=== PATIENT | male | born 1995 | race Caucasian/White ===

== ENCOUNTER 2016-09-23 14:24 | Emergency (ER) | END 2016-09-23 14:40 | disposition left against medical advice (07) | LOC: C.EDB 14:28 | DX: R10.9 Unspecified abdominal pain (principal) ==

== ENCOUNTER 2017-07-18 01:42 | Emergency (ER) | payer OTHER ==
[~2017-07-18] VITALS: Ht 162.6 cm; Wt 59.5 kg
[2017-07-18 01:45] VITALS: TEMP 36.4; Ht 162.6 cm; Wt 59.5 kg
--- NOTE | 2017-07-18 01:57 | EMERGENCY ROOM VISIT NOTE ---
History Report prepared by Ree: Meg Ceballos Under the Supervision of: Dr. Talha Wong D.O. First contact with patient: 01:49 Chief Complaint: LACERATION/CUT (SUT/DERMABOND) Stated Complaint: FELL AND HIT HEAD History of Present Illness The patient is a 22 year old male who presents to the Emergency Room with complaints of a laceration occurring shortly prior to arrival. Per his friend, the patient jumped from his bunk bed and hit his forehead. Per his friends, the patient did not lose consciousness. His friends state that the patient has Lyme Disease, but is not currently taking medications for it. His friend states that the patient began drinking at 2100 tonight. Limited HPI secondary to intoxication. Source of History: patient, friend History Limited By: intoxication Onset: shortly prior to arrival Position: head (f) Quality: other (laceration) Associated Symptoms: No LOC Review of Systems Limited ROS secondary to intoxication. Past Medical & Surgical Unable to obtain medical history sheet secondary to intoxication. Family History Unable to obtain medical history sheet secondary to intoxication. Social History Smoking Status: Never Smoker Occupation Status: [employer] student Unable to obtain medical history sheet secondary to intoxication. Current/Historical Medications Unable to Obtain Active Prescriptions or Reported Meds Physical Exam Vital Signs Date Time Temp Pulse Resp B/P (MAP) Pulse Ox O2 Delivery O2 Flow Rate FiO2 07/18/17 04:02 110/63 07/18/17 03:35 81 16 95 07/18/17 03:05 84 14 96 07/18/17 03:00 78 15 97 07/18/17 02:30 72 15 97 07/18/17 02:24 69 16 127/60 95 Room Air 07/18/17 02:24 69 07/18/17 02:23 96 Room Air 07/18/17 01:45 36.4 95 18 115/69 99 Room Air Physical Exam GENERAL: Patient is awake to verbal commands, appears intoxicated EYES: The conjunctivae are clear. The pupils are dilated and minimally reactive to light bilaterally. HEAD: Linear laceration above right eyebrow. No active bleeding noted. EARS, NOSE, MOUTH AND THROAT: The nose is without any evidence of any deformity. Mucous membranes are moist tongue is midline NECK: The neck is nontender and supple. RESPIRATORY: Normal respiratory effort is noted there is no evidence of wheezing rhonchi or rales CARDIOVASCULAR: Regular rate and rhythm noted there no murmurs rubs or gallops normal S1 normal S2 GASTROINTESTINAL: The abdomen is soft. Bowel sounds are present in all quadrants. Abdomen is nontender MUSCULOSKELETAL/EXTREMITIES: There is no evidence of gross deformity full range of motion is noted in the hips and shoulders SKIN: There is no obvious evidence of any rash. There are no petechiae, pallor or cyanosis noted. NEUROLOGIC: Patient is awake alert and oriented to person, place, and situation. Patellar reflexes were 2+ bilaterally Medical Decision & Procedures ER Provider Diagnostic Interpretation: Preliminary Findings Only See Final Report For Complete Findings CT C SPINE: No evidence of acute or fracture or malalignment. No critical central canal stenosis or apical pneumothorax. Radiologist: Johny Munoz M.D. Study ready at 02:25 and initial results transmitted at 03:01 Preliminary Findings Only See Final Report For Complete Findings CT HEAD: No ICH, mass effect or edema. No skull fracture. Right frontal scalp hematoma. Radiologist: Johny Munoz M.D. Study ready at 02:25 and initial results transmitted at 02:56 Laboratory Results 07/18/17 02:01 Test 07/18/17 02:01 Anion Gap 10.0 mmol/L (3-11) Est Creatinine Clear Calc Drug Dose 107.6 ml/min Estimated GFR () 139.1 Estimated GFR (Non- 120.0 BUN/Creatinine Ratio 13.1 (10-20) Calcium Level 8.4 mg/dl (8.5-10.1) Ethyl Alcohol mg/dL 207.0 mg/dl (0-3) Laboratory results per my review. Medications Administered Medications (Trade) Dose Ordered Sig/Fabian Route Start Time Stop Time Status Last Admin Dose Admin Ondansetron HCl (Zofran Odt) 4 mg ONE ONCE PO 07/18/17 03:15 07/18/17 03:16 DC 07/18/17 03:09 4 MG Procedure Location: right forehead Total length: 3 cm Complexity: medium Verbal consent was obtained after the risks and benefits were explained, including but not limited to bleeding, scarring, infection, pain, and bone/joint /nerve damage. At this time, the risks of the procedure are less than the risks of NOT performing the procedure. A time out was taken and the correct patient and site identified. The skin was prepped with betadine. The target area was anesthetized with 3 ml of 1% lidocaine without epinephrine. Copious irrigation was performed using normal saline solution. The skin was re-prepped with betadine and a sterile field set. The wound was explored for foreign bodies and none found. Examination revealed no injury to deep structures such as tendons, bone, or significant blood vessels. Debridement was not performed. The wound edges were approximated using 7 simple interrupted sutures 5-0 simple interrupted nylon sutures. Hemostasis and excellent approximation was achieved. Antibacterial ointment and a sterile dressing applied. Detailed wound care instructions and signs and symptoms of infection reviewed with the patient. No complications and the patient tolerated the procedure well. ED Course 0149: The patient was evaluated in room A4B. A complete history and physical examination were performed. 0200: Ordered Lidocaine/Epinephrine 20 ml INFIL. Medical Decision Differential diagnosis: Etiologies such as alcohol intoxication, toxicologic, infection, hypoglycemia, electrolyte abnormalities, cardiac sources, intracerebral event, neurologic, as well as others were entertained. Nursing notes reviewed. Additional history is obtained from the patient's friends. The patient is a 22-year-old male who presented to the emergency department after a fall. The patient fell out of his bunkbed when he was trying to get out. The patient's friends state he was very intoxicated at the time. There is no definite loss of consciousness but the patient was intoxicated and also had a facial laceration. The facial laceration was repaired in usual fashion. He tolerated this procedure well. I discussed the patient's laboratory and radiographic studies with him and his roommate. The patient was treated with Zofran in the emergency department. The patient did have one episode of emesis upon arrival to the emergency department. He was reevaluated multiple times. He continued to be sleeping but would awake to verbal commands. He would fall sleep easily. For this reason he was observed in the emergency department until he was no longer clinically toxic.. The patient was Dr. Moraes at change of shift. Please see his note for continuation of care and final disposition. Head Trauma GCS Score: 14 Medication Reconcilliation Current Medication List: was personally reviewed by me Blood Pressure Screening Patient's blood pressure: Normal blood pressure Impression Primary Impression: Fall Additional Impressions: Head injury Facial laceration Alcohol intoxication Scribe Attestation The scribe's documentation has been prepared under my direction and personally reviewed by me in its entirety. I confirm that the note above accurately reflects all work, treatment, procedures, and medical decision making performed by me. Departure Information Prescriptions Unable to Obtain Active Prescriptions or Reported Meds Referrals No Doctor, Assigned (PCP) Forms HOME CARE DOCUMENTATION FORM, IMPORTANT VISIT INFORMATION Patient Instructions My [facility] Problem Qualifiers Primary Impression: Fall Encounter type: initial encounter Qualified Codes: W19.XXXA - Unspecified fall, initial encounter Additional Impressions: Head injury Encounter type: initial encounter Qualified Codes: S09.90XA - Unspecified injury of head, initial encounter Facial laceration Encounter type: initial encounter Qualified Codes: S01.81XA - Laceration without foreign body of other part of head, initial encounter Alcohol intoxication Complication of substance-induced condition: uncomplicated Qualified Codes: F10.920 - Alcohol use, unspecified with intoxication, uncomplicated
[2017-07-18] MEDS ORDERED: LIDOCAINE/EPINEPHRINE 1% 20 ML VIAL INFIL ONE (02:00)
[2017-07-18 02:23] VITALS: O2SAT 96
[2017-07-18 02:26] LABS: BUN/CREATININE RATIO 13.1 (10-20); CALCIUM 8.4 mg/dl (8.5-10.1); CREATININE 0.91 mg/dl (0.60-1.40)
[2017-07-18 03:13] LABS: POTASSIUM 3.9 mmol/L (3.5-5.1)
[2017-07-18] MEDS ORDERED: ONDANSETRON 4MG OD TAB PO ONE (03:15)
[2017-07-18 05:30] VITALS: BP 118/57
[2017-07-18 05:45] VITALS: O2SAT 93
[2017-07-18 06:24] VITALS: PULSE 102
--- NOTE | 2017-07-18 06:42 | EMERGENCY ROOM VISIT NOTE ---
ED Visit Note Patient seen by me at bedside at 6:40 AM patient has a GCS of 15 nonfocal neurologically patient is stable for discharge Current/Historical Medications Unable to Obtain Active Prescriptions or Reported Meds Vital Signs Date Time Temp Pulse Resp B/P (MAP) Pulse Ox O2 Delivery O2 Flow Rate FiO2 07/18/17 06:24 102 07/18/17 05:45 89 13 93 07/18/17 05:30 118/57 07/18/17 05:15 95 14 93 07/18/17 05:00 111/47 07/18/17 04:45 76 16 97 07/18/17 04:40 87 15 95 07/18/17 04:30 109/52 07/18/17 04:10 82 18 94 07/18/17 04:03 110/63 07/18/17 04:02 110/63 07/18/17 03:40 83 4 96 07/18/17 03:35 81 16 95 07/18/17 03:05 84 14 96 07/18/17 03:00 78 15 97 07/18/17 02:30 72 15 97 07/18/17 02:24 69 16 127/60 95 Room Air 07/18/17 02:24 69 07/18/17 02:23 96 Room Air 07/18/17 01:45 36.4 95 18 115/69 99 Room Air Laboratory Results 07/18/17 02:01 Test 07/18/17 02:01 Anion Gap 10.0 mmol/L (3-11) Est Creatinine Clear Calc Drug Dose 107.6 ml/min Estimated GFR () 139.1 Estimated GFR (Non- 120.0 BUN/Creatinine Ratio 13.1 (10-20) Calcium Level 8.4 mg/dl (8.5-10.1) Ethyl Alcohol mg/dL 207.0 mg/dl (0-3) Medications Administered Medications (Trade) Dose Ordered Sig/Fabian Route Start Time Stop Time Status Last Admin Dose Admin Ondansetron HCl (Zofran Odt) 4 mg ONE ONCE PO 07/18/17 03:15 07/18/17 03:16 DC 07/18/17 03:09 4 MG Departure Information Impression Primary Impression: Fall Additional Impressions: Alcohol intoxication Facial laceration Head injury Dispostion Home / Self-Care Condition GOOD Prescriptions Unable to Obtain Active Prescriptions or Reported Meds Referrals [facility] Forms HOME CARE DOCUMENTATION FORM, IMPORTANT VISIT INFORMATION Patient Instructions My [facility], ED Alcohol Intoxication, ED Head Injury Closed, ED Laceration Facial Sutr Tape Additional Instructions Continue to drink plenty clear liquids. Avoid any further alcoholic beverages for the next 24 hours. Do not operate any heavy machinery including driving a vehicle for next 24 hours. Follow-up with [facility] in 5-7 days for suture removal. Continue to put triple antibiotic ointment to the area 2-3 times a day. Continue using Motrin and Tylenol as directed for pain. Problem Qualifiers
--- NOTE | 2017-07-18 06:45 | DIAGNOSTIC IMAGING REPORT ---
CERVICAL SPINE W/O CLINICAL HISTORY: 22 years-old Male with fall. Acute neck injury status post fall COMPARISON: CT head of same day. TECHNIQUE: Multiple axial CT images of the cervical spine were obtained without contrast. A dose lowering technique was utilized adhering to the principles of ALARA. FINDINGS: Vertebral body heights and alignment are normal. No fracture or subluxation is identified. The intervertebral disc spaces are preserved. No significant central canal or neural foraminal stenosis is identified. The cervical soft tissues appear unremarkable. The visualized lung apices appear clear. IMPRESSION: No acute cervical spine fracture or subluxation. The above report was generated using voice recognition software. It may contain grammatical, syntax or spelling errors. Electronically signed by: Orlando Garcia M.D. 07/18/2017 6:44 AM Dictated Date/Time: 07/18/2017 6:42 AM
--- NOTE | 2017-07-18 07:46 | DIAGNOSTIC IMAGING REPORT ---
HEAD WITHOUT CONTRAST (CT) CLINICAL HISTORY: 22 years-old Male with fall. Acute head injury status post fall with alcohol intoxication TECHNIQUE: Multiple axial CT images of the head were obtained without contrast. A dose lowering technique was utilized adhering to the principles of ALARA. CT DOSE: 1020.30 mGy.cm COMPARISON: Cervical spine of same day. FINDINGS: No acute intracranial hemorrhage, midline shift, mass, large territorial ischemia or abnormal extra-axial collection. The calvarium is intact. The paranasal sinuses, mastoid air cells, and middle ear cavities are clear. Right frontal scalp hematoma measures 2.8 x 0.9 cm. No opaque foreign body. IMPRESSION: 1. No acute intracranial abnormality. 2. 2.8 cm right frontal scalp hematoma without calvarial fracture. The above report was generated using voice recognition software. It may contain grammatical, syntax or spelling errors. Electronically signed by: Orlando Garcia M.D. 07/18/2017 7:45 AM Dictated Date/Time: 07/18/2017 7:43 AM
== END 2017-07-18 06:40 | disposition home or self-care (01) ==
LOC: C.EDB 01:43 → C.EDA 06:40
DX: S01.81XA Laceration without foreign body of other part of head, initial encounter (principal); S09.90XA Unspecified injury of head, initial encounter; W22.8XXA Striking against or struck by other objects, initial encounter; F10.129 Alcohol abuse with intoxication, unspecified; Y90.7 Blood alcohol level of 200-239 mg/100 ml

== ENCOUNTER 2017-07-24 12:55 | Emergency (ER) | payer OTHER ==
[~2017-07-24] VITALS: Ht 170.2 cm; Wt 59.2 kg
[2017-07-24 13:26] VITALS: BP 131/76; PULSE 95; TEMP 36.8; O2SAT 97; Ht 170.2 cm; Wt 59.2 kg
--- NOTE | 2017-07-24 13:37 | EMERGENCY ROOM VISIT NOTE ---
ED Visit Note First contact with patient: 13:29 CHIEF COMPLAINT: Suture removal This patient returns to the ED today for removal of sutures that were placed 6 days ago. There has been no swelling, redness, or drainage from the wound. The patient feels like the laceration is healing well. REVIEW OF SYSTEMS: Head: No headache, injury or neck pain. Skin: No rash, new lesions, or masses. General: No fever or chills, fatigue, loss of appetite , or significant recent weight gain or loss. PMH: Electronic medical records are reviewed and summarized as above/below. See Problem List. SOCIAL HISTORY: Patient lives at home. College student. PHYSICAL EXAM: Vital Signs: Reviewed Nurse's notes. There is a sutured wound on the forehead, near the right eyebrow with no signs of infection. There is no erythema, swelling, or tenderness. EMERGENCY DEPARTMENT COURSE: The sutures were removed without any difficulty and there was no separation of the wound edges. DIAGNOSIS: Healing laceration and suture removal DISCHARGE INSTRUCTIONS AND TREATMENT: Wash any remaining crusts off of the wound today and resume your normal activities. Current/Historical Medications No Active Prescriptions or Reported Meds Allergies Coded Allergies: Cephalexin (Verified Allergy, Intermediate, RASH, 07/24/17) Vital Signs Date Time Temp Pulse Resp B/P (MAP) Pulse Ox O2 Delivery O2 Flow Rate FiO2 07/24/17 13:26 36.8 95 20 131/76 97 Room Air Departure Information Impression Primary Impression: Encounter for removal of sutures Prescriptions No Active Prescriptions or Reported Meds Referrals No Doctor, Assigned (PCP) Patient Instructions [facility]
== END 2017-07-24 13:37 | disposition home or self-care (01) ==
LOC: C.EDB 12:56 → C.EDD 13:37
DX: S01.81XD Laceration without foreign body of other part of head, subsequent encounter (principal); X58.XXXD Exposure to other specified factors, subsequent encounter